=== PATIENT | female | born 1980 | race Caucasian/White ===

== ENCOUNTER 2016-08-03 17:05 | Emergency (ER) | payer OTHER ==
[2016-08-03 17:42] VITALS: BP 153/119
[2016-08-03] MEDS ORDERED: ONDANSETRON 4 MG TAB.RAPDIS PO ONE (17:43)
[2016-08-03] MEDS ORDERED: ONDANSETRON 4 MG TAB.RAPDIS ONE (17:44)
[2016-08-03 17:59] LABS: Hematocrit 37.5 % (37.0-47.0); Hemoglobin 10.9 gm/dL (12.5-16.0); Mean Cell Volume 76.7 fl (78-100); Mean Corpuscular Hemoglobin 22.3 pg (27-31); Mean Corpuscular Hgb Conc 29.1 g/dl (32-36); Mean Platelet Volume 10.3 fl (6.0-9.5); Neutrophil # 6.7 K/mm3 (1.3-6.0); Neutrophil % 71.4 % (42-75.0); Platelet Count 326 K/mm3 (150-450); Red Blood Count 4.89 M/mm3 (4.2-5.4); Red Cell Distribution Width 17.4 % (11.5-14.0); White Blood Count 9.4 K/mm3 (4.0-10.5)
[2016-08-03 18:12] LABS: BUN/Creatinine Ratio 9.5 (9.0-21.6)
[2016-08-03 18:13] LABS: Albumin * 3.8 gm/dl (3.4-5.0); Anion Gap 15.3 mmol/L (6.8-13.8); Bilirubin, Total 0.3 mg/dL (0.0-1.1); Ca. Corrected For Albumin 8.8 mg/dL (8.4-10.2); Carbon Dioxide 23.1 mmol/L (24-32.6); Potassium 3.4 mmol/L (3.4-4.6); Total Protein 7.4 gm/dL (6.2-8.2)
[2016-08-03] MEDS ORDERED: ONDANSETRON HCL/PF 2 MG/ML VIAL IV ONE (19:32)
[2016-08-03] MEDS ORDERED: NORMAL SALINE 1,000 ML IV ONE (19:32)
[2016-08-03] MEDS ORDERED: KETOROLAC TROMETHAMINE 30 MG/ML VIAL IV ONE (19:33)
[2016-08-03] MEDS ORDERED: diphenhydrAMINE HCL 50 MG/ML VIAL IV ONE (19:33)
--- NOTE | 2016-08-03 19:43 | ERNOTE ---
Medical Problem HPI - Narrative Date of Service: 08/03/16 - General Chief Complaint: Nausea/Vomiting Time Seen by Provider: 08/03/16 19:30 Source: patient Exam Limitations: no limitations - Immun/Allergies/Home Medications Immunizations: IMMUNIZATION HX Immunizations Up to Date Yes History of Influenza Vaccine No Hx Pneumococcal Vaccination No Allergies/Adverse Reactions: Allergies amoxicillin [Amoxicillin] Allergy (Verified 08/03/16 17:42) butorphanol tartrate [From Stadol] Allergy (Verified 08/03/16 17:42) Itching egg Allergy (Verified 08/03/16 17:42) ferumoxytol [From Feraheme] Allergy (Verified 08/03/16 17:42) Hypertension,Faint,Abd. Pain morphine Allergy (Verified 08/03/16 17:42) Hives milk Adverse Reaction (Verified 08/03/16 17:42) Home Medications: HOME MEDICATIONS Amitriptyline HCl 50 mg PO HS 06/10/13 [Last Taken 11/06/14 21:00 50mg] Propranolol HCl [Propranolol HCl ER] 120 mg PO DAILY 06/10/13 [Last Taken 09:00 120mg] Topiramate [Topamax] 25 mg PO BID 03/12/14 [Last Taken 11/14/14 09:00 25mg] amLODIPine BESYLATE [Norvasc] 5 mg PO DAILY 03/12/14 [Last Taken 11/14/14 09:00] Fluoxetine HCl [Prozac] 40 mg PO DAILY 11/14/14 [Last Taken 11/14/14 09:00 40mg] Promethazine HCl 12.5 mg PO QID #20 tablet 05/24/15 [Last Taken Unknown] oxyCODONE HCL/ACETAMINOPHEN [Percocet 5 MG/325 MG] 1 tab PO QID #20 tab [Last Taken Unknown] Naproxen [Naprosyn] 500 mg PO BID PRN #60 tab 08/26/15 [Last Taken Unknown] Ondansetron [Zofran Odt] 4 mg PO Q6H PRN #20 tab 08/26/15 [Last Taken Unknown] Ondansetron [Zofran Odt] 4 mg PO Q6H PRN #20 tab 08/03/16 [Last Taken Unknown] - History of Present History Narrative: Pt. comes in with c/o nausea and vomiting for two days and states that she has not been able to tolerate any foods or fluids during this time. Pt. denies any CP, fevers, but does state that she is developing a headache from the vomiting and that she has LUQ pain. Pt. denies any prehospital treatment, alleviating factors, or aggravating factors. Review of Systems - Review of Systems Constitutional: Present: no symptoms reported. Absent: recent illness, fever, chills, weakness, fatigue, malaise EYE: Present: no symptoms reported ENT: Present: no symptoms reported Respiratory: Present: no symptoms reported. Absent: shortness of breath, cough , wheezing Cardiology: Present: no symptoms reported. Absent: chest pain, palpitations, edema Gastrointestinal/Abdominal: Present: nausea, vomiting, abdominal pain. Absent: diarrhea, constipation Genitourinary: Present: no symptoms reported. Absent: frequency, pain, dysuria , decreased urinary output Musculoskeletal: Present: no symptoms reported. Absent: back pain, joint pain Skin: Present: no symptoms reported. Absent: rash, change in color, change in hair/nails Neurological: Present: headache. Absent: dizziness/light-headedness, numbness, tingling All Other Systems: All systems neg except as marked - Patient's Past Medical History Patient History - Medical: Anemia Patient History - Cardiac/Respiratory: No pertinent hx Patient History - Cancer: No Hx of Cancer Patient History - Surgical Procedures: Appendectomy, Cholecystectomy, , Tubal Ligation, T & A - Social History Living Situations: alone Smoking Status: Never smoker Have you smoked in the past 12 months: No Alcohol Use: occasionally Drug Use: none Physical Exam - Physical Exam General Appearance: Present: wd/wn, alert, no apparent distress Eye Exam: Normal inspection: bilateral, PERRL: bilateral, EOMI: bilateral Ears, Nose, Throat: Present: normal ENT inspection, hearing grossly normal, normal pharynx Neck: Present: normal inspection, nontender. Absent: lymphadenopathy (R), lymphadenopathy (L) Respiratory: Present: no respiratory distress, normal breath sounds, no accessory muscle use, chest nontender, lungs clear Cardiovascular/Chest: Present: regular rate, rhythm, no murmur, normal peripheral pulses Gastrointestinal/Abdominal: Present: normal bowel sounds, nondistended, soft, no organomegaly, tenderness - LUQ Back Exam: Present: normal inspection, normal range of motion, no CVA tenderness , no vertebral tenderness Extremity Exam: Present: normal inspection, non-tender, no edema, normal range of motion Neurological Exam: Present: alert, oriented, normal mood/affect, no motor/ sensory deficits, material mixer II-XII nml as tested, normal cerebellar test Skin Exam: Present: warm/dry, pallor. Absent: skin rash ED Progress - Date and Time Seen: Date and Time: 08/03/16 22:[address] scan. As I cannot find any blatant emergent problem with pt at this time I am ok with pt. going home as this may be a simple virus but educate the pt. that if symptoms do not improve she will need to return and have the CT of her abdomen to rule out any further causes. - Results and Orders Patient's Lab Results:: I have reviewed the patient's lab results. - Vital Signs Patient's Vital Signs:: I have reviewed the patient's vital signs. Vital Signs: Vital Signs 08/03/16 17:40 Temperature 36.4 C L Pulse Rate 84 Respiratory 12 Rate Blood Pressure 153/119 O2 Sat by Pulse 100 Oximetry - X-Ray X-Ray #1 X-Ray: abdomen Interpretation: Interp. by me X-ray Comments: No obstruction, No free air. - Progress/Reassessment Chief Complaint: Nausea/Vomiting Departure - Departure Clinical Impression: Viral gastroenteritis, Dehydration Nausea and vomiting Qualifiers: Vomiting type: unspecified Vomiting Intractability: intractable Qualified Code( s): R11.2 - Nausea with vomiting, unspecified Disposition: Home self-care Condition: Fair Instructions: Nausea and Vomiting, Adult, [id number] Additional Instructions: Please folow up with primary provider in 2-3 days. Referrals: Stanley Somers MD [Primary Care Provider] - Prescriptions: Ondansetron [Zofran Odt] 4 mg PO Q6H PRN #20 tab PRN Reason: Nausea
[2016-08-03] MEDS ORDERED: PROMETHAZINE HCL 25 MG in DEXTROSE 5 % IN WATER 50 ML IV ONE ×2 (20:49)
[2016-08-03] MEDS ORDERED: DIATRIZOATE MEGLU/DIATRIZO SOD 30 ML BTL ONE (21:00)
== END 2016-08-03 22:30 | disposition home or self-care (01) ==
LOC: ER 17:05
DX: E86.0 Dehydration (principal); A08.4 Viral intestinal infection, unspecified

== ENCOUNTER 2016-08-07 17:44 | Emergency (ER) | payer OTHER ==
[2016-08-07] MEDS ORDERED: ONDANSETRON HCL/PF 2 MG/ML VIAL ONE (18:45)
[2016-08-07] MEDS ORDERED: NORMAL SALINE 1,000 ML IV ONE ×2 (18:47→19:55)
[2016-08-07] MEDS ORDERED: ONDANSETRON HCL/PF 2 MG/ML VIAL IV ONE (18:47)
--- NOTE | 2016-08-07 19:07 | ERNOTE ---
Medical Problem HPI - Narrative Date of Service: 08/07/16 - General Chief Complaint: Nausea/Vomiting Time Seen by Provider: 08/07/16 18:35 Source: patient Exam Limitations: no limitations - Immun/Allergies/Home Medications Immunizations: IMMUNIZATION HX Immunizations Up to Date Yes History of Influenza Vaccine No Hx Pneumococcal Vaccination No Allergies/Adverse Reactions: Allergies amoxicillin [Amoxicillin] Allergy (Verified 08/07/16 18:03) butorphanol tartrate [From Stadol] Allergy (Verified 08/07/16 18:03) Itching egg Allergy (Verified 08/07/16 18:03) ferumoxytol [From Feraheme] Allergy (Verified 08/07/16 18:03) Hypertension,Faint,Abd. Pain morphine Allergy (Verified 08/07/16 18:03) Hives milk Adverse Reaction (Verified 08/07/16 18:03) Home Medications: HOME MEDICATIONS Propranolol HCl [Propranolol HCl ER] 120 mg PO DAILY 06/10/13 [Last Taken 09:00 120mg] Topiramate [Topamax] 25 mg PO BID 03/12/14 [Last Taken 11/14/14 09:00 25mg] amLODIPine BESYLATE [Norvasc] 5 mg PO DAILY 03/12/14 [Last Taken 11/14/14 09:00] Fluoxetine HCl [Prozac] 40 mg PO DAILY 11/14/14 [Last Taken 11/14/14 09:00 40mg] Ondansetron [Zofran Odt] 4 mg PO Q6H PRN #20 tab 08/26/15 [Last Taken Unknown] Promethazine HCl [Phenergan Suppository] 25 mg RC Q6H PRN #20 supp.rect [Last Taken Unknown] - Pain Score Pain Score #1 Pain Score: 8 - History of Present History Narrative: patient is a 35 year old female who presents to the ED tonight with complaints of NVD since Tuesday. Patient states she "has been sick for a while". States she was here Tuesday and was given IVF and sent home with Zofran but "it is not working". Denies fever, chills or body aches. Also presents with RLQ pain which has been constant and stabbing like in nature. States LMP ended . Patient still has her appendix. States mother and daughter have been ill at home with similar complaints. Date (Duration): 08/02/16 Timing: constant, getting worse Severity: moderate Modifying Factors - (Improves): Present: rest Modifying Factors - (Worsens): Present: movement Review of Systems - Review of Systems Constitutional: Present: weakness, fatigue. Absent: fever, chills, diaphoresis , weight loss EYE: Present: no symptoms reported ENT: Present: no symptoms reported. Absent: ear pain, pulling on ears, nose congestion, nasal drainage, sore throat Respiratory: Present: no symptoms reported. Absent: shortness of breath, cough , wheezing Cardiology: Present: no symptoms reported. Absent: chest pain, palpitations, syncope Gastrointestinal/Abdominal: Present: nausea, vomiting, diarrhea, abdominal pain , eating less, drinking less Genitourinary: Present: no symptoms reported. Absent: frequency, pain, dysuria , hematuria Musculoskeletal: Absent: muscle pain, joint pain Skin: Absent: rash, lesions Neurological: Present: headache. Absent: dizziness/light-headedness Hematologic/Lymphatic: Absent: swollen glands - Patient's Past Medical History Patient History - Medical: Anemia Patient History - Cardiac/Respiratory: No pertinent hx Patient History - Cancer: No Hx of Cancer Patient History - Surgical Procedures: Appendectomy, Cholecystectomy, , Tubal Ligation, T & A - Social History Living Situations: alone Smoking Status: Never smoker Alcohol Use: occasionally Drug Use: none Physical Exam - Physical Exam General Appearance: Present: wd/wn, alert, no apparent distress Eye Exam: Normal inspection: bilateral, PERRL: bilateral Ears, Nose, Throat: Present: hearing grossly normal. Absent: nasal congestion, sinus pain/drainage Neck: Present: normal inspection, nontender. Absent: lymphadenopathy (R), lymphadenopathy (L) Respiratory: Present: no respiratory distress, normal breath sounds, no accessory muscle use, chest nontender, lungs clear. Absent: respiratory distress, accessory muscle use Cardiovascular/Chest: Present: regular rate, rhythm, no murmur, normal peripheral pulses Peripheral Pulses: N=norm/S=strong/W=weak/B=bound/A=absent: Radial (R): Strong, Radial (L): Strong Gastrointestinal/Abdominal: Present: normal bowel sounds, nondistended, soft, tenderness, guarding. Absent: distended, rebound Back Exam: Present: normal inspection, normal range of motion, no CVA tenderness , no vertebral tenderness. Absent: CVA tenderness (R), CVA tenderness (L) Extremity Exam: Present: normal inspection, non-tender, no edema, normal range of motion Neurological Exam: Present: alert, oriented, normal mood/affect, no motor/ sensory deficits Skin Exam: Present: normal color, warm/dry. Absent: diaphoresis, cyanosis, pallor Lymphatic Exam: Present: no adenopathy ED Progress - Results and Orders Patient's Lab Results:: I have reviewed the patient's lab results. - Vital Signs Patient's Vital Signs:: I have reviewed the patient's vital signs. Vital Signs: Vital Signs 08/07/16 18:00 Temperature 35.7 C L Pulse Rate 111 H Respiratory 14 Rate Blood Pressure 153/114 O2 Sat by Pulse 98 Oximetry - CT/Ultrasound CT/Ultrasound Narrative: Apparent thickening third portion of duodenum to proximal jejunum with slight haziness of fat at root of small bowel mesentery and cannot exclude mild inflammatory/infectious process. Unremarkable appendix, otherwise WNL - Progress/Reassessment Chief Complaint: Nausea/Vomiting Progress:: Improved Progress Note-Subjective: 08/07/16 19:28 continues to vomit despite Zofran. Still complains of pain RLQ with grimacing to palpation. Will medicate with Reglan and Morphine and proceed with CT of abd /pelvis 08/07/16 21:46 No vomiting noted since return of CT scan. States she is feeling better and wants to go home Departure - Departure Clinical Impression: Gastroenteritis Nausea & vomiting Qualifiers: Vomiting type: unspecified Vomiting Intractability: non-intractable Qualified Code(s): R11.2 - Nausea with vomiting, unspecified Disposition: Home Follow Up Needed Condition: Good Instructions: Viral Gastroenteritis, Adult, [id number], Nausea and Vomiting, Adult, [id number] Additional Instructions: Use Phenergan suppositories as needed if Zofran does not work. Push clear fluids especially water and Gatorade. Advance to nora mckenna if tolerating clear liquids. Referrals: Stanley Somers MD [Primary Care Provider] - Prescriptions: Promethazine HCl [Phenergan Suppository] 25 mg RC Q6H PRN #20 supp.rect PRN Reason: Nausea
[2016-08-07 19:13] LABS: Hematocrit 35.7 % (37.0-47.0); Hemoglobin 10.4 gm/dL (12.5-16.0); Mean Cell Volume 78.5 fl (78-100); Mean Corpuscular Hemoglobin 22.9 pg (27-31); Mean Corpuscular Hgb Conc 29.1 g/dl (32-36); Mean Platelet Volume 10.5 fl (6.0-9.5); Neutrophil # 8.2 K/mm3 (1.3-6.0); Neutrophil % 89.5 % (42-75.0); Platelet Count 256 K/mm3 (150-450); Red Blood Count 4.55 M/mm3 (4.2-5.4); Red Cell Distribution Width 17.7 % (11.5-14.0); White Blood Count 9.1 K/mm3 (4.0-10.5)
[2016-08-07 19:19] LABS: Anion Gap 16.4 mmol/L (6.8-13.8); BUN/Creatinine Ratio 6.3 (9.0-21.6); Calcium * 8.4 mg/dL (7.9-10.9); Estimated Creat Clear 83.1; Potassium 3.4 mmol/L (3.4-4.6)
[2016-08-07] MEDS ORDERED: MORPHINE SULFATE 2 MG/ML DISP.SYRIN IV ONE (19:27)
[2016-08-07] MEDS ORDERED: METOCLOPRAMIDE HCL 5 MG/ML VIAL IV ONE (19:27)
[2016-08-07] MEDS ORDERED: METOCLOPRAMIDE HCL 5 MG/ML VIAL ONE (19:33)
[2016-08-07] MEDS ORDERED: KETOROLAC TROMETHAMINE 30 MG/ML VIAL IV ONE (19:39)
[2016-08-07] MEDS ORDERED: KETOROLAC TROMETHAMINE 30 MG/ML VIAL ONE (19:42)
[2016-08-07 20:58] LABS: Urine Appearance Slightly Cloudy; Urine Bilirubin Negative (NEGATIVE); Urine Blood 10 /ul (NEGATIVE); Urine Color Yellow; Urine Ketone 15 mg/dL (NEGATIVE)
[2016-08-07 20:59] LABS: Urine Nitrite Negative (NEGATIVE); Urine Protein Negative (NEGATIVE); Urine Specific Gravity 1.025 SP.GR. (1.005-1.010); Urine Urobilinogen Normal (NORMAL); Urine pH 5.5 pH (5.0-7.0)
[2016-08-07 21:01] VITALS: BP 144/68
[2016-08-07 21:02] LABS: Urine Bacteria None Seen; Urine WBC 0-5 /hpf (0-5)
[2016-08-07 21:03] LABS: Urine RBC 0-5 /hpf (0-5)
[2016-08-07] MEDS ORDERED: PROMETHAZINE HCL 12.5 MG SUPP.RECT RC ONE ×3 (21:22→21:27)
== END 2016-08-07 21:35 | disposition home or self-care (01) ==
LOC: ER 17:44
DX: K52.9 Noninfective gastroenteritis and colitis, unspecified (principal); Z90.49 Acquired absence of other specified parts of digestive tract

== ENCOUNTER 2016-10-17 20:30 | Emergency (ER) | payer OTHER ==
[2016-10-17 20:41] VITALS: BP 157/98
--- NOTE | 2016-10-17 21:35 | ERNOTE ---
Allergy Symptoms - ER Date of Service: 10/17/16 Presenting Symptoms: skin rash Source: patient Immunizations: IMMUNIZATION HX Immunizations Up to Date Yes History of Influenza Vaccine No Hx Pneumococcal Vaccination No Allergies/Adverse Reactions: Allergies amoxicillin [Amoxicillin] Allergy (Verified 08/07/16 18:03) butorphanol tartrate [From Stadol] Allergy (Verified 08/07/16 18:03) Itching capsaicin Allergy (Verified 10/17/16 20:42) egg Allergy (Verified 08/07/16 18:03) ferumoxytol [From Feraheme] Allergy (Verified 08/07/16 18:03) Hypertension,Faint,Abd. Pain morphine Allergy (Verified 08/07/16 18:03) Hives milk Adverse Reaction (Verified 08/07/16 18:03) Home Medications: HOME MEDICATIONS Propranolol HCl [Propranolol HCl ER] 120 mg PO DAILY 06/10/13 [Last Taken 09:00 120mg] Topiramate [Topamax] 25 mg PO BID 03/12/14 [Last Taken 11/14/14 09:00 25mg] amLODIPine BESYLATE [Norvasc] 5 mg PO DAILY 03/12/14 [Last Taken 11/14/14 09:00] FLUoxetine HCL [Prozac] 40 mg PO DAILY 11/14/14 [Last Taken 11/14/14 09:00 40mg] Ondansetron [Zofran Odt] 4 mg PO Q6H PRN #20 tab 08/26/15 [Last Taken Unknown] Promethazine HCl [Phenergan Suppository] 25 mg RC Q6H PRN #20 supp.rect [Last Taken Unknown] Gentamicin Sulf/Prednisolone [Pred-G S.o.p. Eye Ointment] 3.5 gm OP QID #3.5 oint...g. 10/17/16 [Last Taken Unknown] Permethrin 60 gm TP ONCE #60 cream..g. 10/17/16 [Last Taken Unknown] - History of Present Illness Narrative: 36 year old Female states she's had a very itchy rash on her extremities for the past week. She said she thought she was putting some itch medicine on but actually she was using capsaicin. She also got some capsaicin in her right eye and it is burning and swelling Review of Systems - Review of Systems Constitutional: Present: no symptoms reported EYE: Present: no symptoms reported ENT: Present: See HPI Respiratory: Present: no symptoms reported Cardiology: Present: no symptoms reported Gastrointestinal/Abdominal: Present: no symptoms reported Genitourinary: Present: no symptoms reported Musculoskeletal: Present: no symptoms reported Skin: Present: See HPI Neurological: Present: no symptoms reported Endocrine: Present: no symptoms reported Hematologic/Lymphatic: Present: no symptoms reported Psych: Present: no symptoms reported - Patient's Past Medical History Patient History - Medical: Anemia Patient History - Cardiac/Respiratory: No pertinent hx Patient History - Cancer: No Hx of Cancer Patient History - Surgical Procedures: Appendectomy, Cholecystectomy, , Tubal Ligation, T & A Patient History - Other: None LMP (females 10-50): 1 month - Social History Living Situations: other Psych History: Hx of Depression, Current tx/ever been on anti-depressants or anti-anxiety meds Smoking Status: Never smoker Alcohol Use: occasionally Drug Use: none - Immunizations Immunizations Up to Date: Yes Hx Pneumococcal Vaccination: No History of Influenza Vaccine: No Physical Exam - Physical Exam General Appearance: Present: wd/wn, alert, mild distress Eye Exam: Normal inspection: bilateral, PERRL: bilateral, Eyelid inflammation: right Ears, Nose, Throat: Present: normal ENT inspection, H, normal pharynx Neck: Present: normal inspection, nontender Respiratory: Present: no respiratory distress, normal breath sounds, no accessory muscle use, chest nontender, lungs clear Cardiovascular/Chest: Present: regular rate, rhythm, no murmur, normal peripheral pulses Gastrointestinal/Abdominal: Present: normal bowel sounds, nontender, nondistended, soft, no organomegaly Rectal Exam: Present: deferred Back Exam: Present: normal inspection, normal range of motion, no CVA tenderness , no vertebral tenderness Extremity Exam: Present: normal inspection, non-tender, no edema, normal range of motion Neurological Exam: Present: alert, oriented, normal mood/affect, no motor/ sensory deficits Skin Exam: Present: normal color, warm/dry, skin rash - scabetic in nature from chin line down entire body. Lymphatic Exam: Present: no adenopathy ED Progress - Vital Signs Vital Signs: Vital Signs 10/17/16 10/17/16 20:36 20:41 Temperature 37.0 C Pulse Rate 104 H Respiratory 16 20 Rate Blood Pressure 157/98 O2 Sat by Pulse 100 99 Oximetry - Progress/Reassessment Chief Complaint: Allergic Reaction Departure Clinical Impression: Scabies, Eye irritation - Departure Disposition: Home self-care Condition: Fair Instructions: Scabies, Adult Referrals: Britney Jaquez DO [Primary Care Provider] - Prescriptions: Gentamicin Sulf/Prednisolone [Pred-G S.o.p. Eye Ointment] 3.5 gm OP QID #3.5 oint...g. Permethrin 60 gm TP ONCE #60 cream..g.
--- OUTSIDE RECORDS SUMMARY | 2016-10-17 21:45 | XMS REPORT | Continuity of Care Document ---
:1980 Author Organization [facility] ([facility]) Address [address] [place] [address] Phone [phone] Care Team Providers Name Role Phone Sushma Murray Primary Care Provider [phone] Source Comments This disclosure is being made pursuant to the Care Everywhere program, applicable federal and state laws, and may not contain all informaitonavailable regarding this patient.[facility] ([facility]) Active Allergies and Adverse Reactions Allergen Noted Date Severity Reactions Comments Penicillins Urticaria (Hives) Current Medications Not on file Active Problems Not on file Social History Tobacco Use Types Packs/Day Years Used Date Never Assessed Last Filed Vital Signs Vital Sign Reading Time Taken Blood Pressure 131/92 07/08/2006 2:00 PM [employer] Pulse 81 07/08/2006 2:00 PM [employer] Temperature 36.1 C (96.98 F) 07/08/2006 2:00 PM [employer] Respiratory Rate 16 07/08/2006 2:00 PM [employer] Height - - Weight 82.196 kg (181 lb 3.4 oz) 07/08/2006 8:00 AM [employer] Body Mass Index - - Oxygen Saturation - - Plan of Care Health Maintenance Due Date Last Done Comments Hepatitis B Vaccine (1 of 3 - Primary Series) 1978 Tdap Vaccine 1989 Lipid Disorder Screening 1996 MMR Vaccine 1996 Td Vaccine 1996 Cervical Cancer Screening 2008 Influenza Vaccine: Seasonal (#1) 02/23/2016 Results from Last 3 Months Not on file
== END 2016-10-17 21:35 | disposition home or self-care (01) ==
LOC: ER 20:30
DX: B86 Scabies (principal); H57.8 Other specified disorders of eye and adnexa